=== PATIENT | female | born 1940 | race Caucasian/White ===

== ENCOUNTER → 2022-12-31 | Outpatient (CLI) | payer MEDICARE, OTHER ==
[~2022-12-31] MED LIST: ACHYD1T PO; ASPI-586 PO; BUDE10.2 IH; CEFP500T4 PO; CITA20TA9 PO; DIGO250T3 PO; DIPH50CA33 PO; FLEC100T PO; FLUT9.9S NS; GABA-488 PO; GABA800T10 PO; LEVO50TA6 PO; LIDO5CRE5 TP; LOPE2CAP PO; LORA0.5T PO; NFPRILOC40 PO; POTA-179 PO; WARF-47 PO; WARF3TAB PO; WRF1T PO
== END ==
LOC: RAD 14:17
PROVIDERS: ATTEND Nurse Practitioner Family
DX: S22.060D Wedge compression fracture of T7-T8 vertebra, subsequent encounter for fracture with routine healing (principal); S22.070D Wedge compression fracture of T9-T10 vertebra, subsequent encounter for fracture with routine healing; S22.080D Wedge compression fracture of T11-T12 vertebra, subsequent encounter for fracture with routine healing; Z53.9 Procedure and treatment not carried out, unspecified reason